=== PATIENT | female | born 1975 | race Caucasian/White ===

== ENCOUNTER 2016-11-18 06:00 | Emergency (ER) | payer BC ==
[~2016-11-18] VITALS: Ht 182.9 cm; Wt 73.3 kg
[~2016-11-18 06:00] MED LIST: ADDERALL30 MG PO; AMOXICILLIN875 MG PO; METHADONE10 MG PO; MOBIC15 MG PO; MOTRIN600 MG PO; MOTRIN800 MG PO; NAPROSYN500 MG PO; NORCO 5/3251 TABLET PO; PREDNISONE20 MG PO; ULTRACET1 TABLET PO; VICODIN HP 10-1 EACH PO; VICODIN,LORT1 TABLET
[2016-11-18] MEDS ORDERED: ADDERALL30 MG PO (06:45)
[2016-11-18 07:28] LABS: HEMATOCRIT 33.1 % (36.0-46.0); MCH 26.3 PG (29.0-34.0); MCHC 32.9 G/DL (30.0-36.0); MCV 79.8 FL (83-99); MEAN PLAT.VOLUME 9.7 uM^3 (9.5-12.4); PLATELET COUNT 399 K/uL (156-360); RBC DIS.WIDTH-CV 16.4 % (11.8-14.6); RBC DIS.WIDTH-SD 46.9 % (39-53); RED BLOOD COUNT 4.15 M/uL (3.80-5.20); WHITE BLOOD COUNT 6.5 K/uL (4.1-10.2)
[2016-11-18 07:29] LABS: BASOPHIL COUNT 0.1 K/uL (0-0.1); EOSINOPHIL (%) 2.8 % (0-5); EOSINOPHIL COUNT 0.2 K/uL (0-0.3); IMMATURE GRANULOCYTE (%) 0.3 % (0.0-0.7); IMMATURE GRANULOCYTE COUNT 0.2 K/uL; LYMPHOCYTE COUNT 1.8 K/uL (1.0-2.8); MONOCYTE (%) 10.5 % (3-12); MONOCYTE COUNT 0.7 K/uL (0-0.8); NEUTROPHIL (%) 57.2 % (45-76); NEUTROPHIL COUNT 3.7 K/uL (1.8-6.4)
[2016-11-18 07:55] LABS: ANION GAP 9 MEQ/L (2-14); CHLORIDE 104 MEQ/L (99-109); POTASSIUM 4.1 MEQ/L (3.7-5.4); SAMPLE HEMOLYSIS CHECK 0; SAMPLE ICTERIC CHECK 0; SAMPLE LIPEMIA CHECK 0; SODIUM 140 MEQ/L (136-147)
[2016-11-18 08:01] LABS: GFR ESTIMATE (CALCULATED) > 59 mL/min/; GLUCOSE 85 mg/dL (70-99); UREA NITROGEN (BUN) 20 mg/dL (9-23)
[2016-11-18 08:05] LABS: TROP-I INTERPRETATION NEGATIVE; TROPONIN-I < 0.01 ng/mL (0.0-0.30)
[2016-11-18 09:50] LABS: ADD MIUA? YES; BILIRUBIN NEGATIVE; BLOOD NEGATIVE; COLOR YELLOW ((YELLOW)); GLUCOSE (STRIP) NEGATIVE; KETONES TRACE; LEUKOCYTES NEGATIVE; NITRITE NEGATIVE; PH, URINE 7.5 (5-8); PROTEIN (STRIP) NEGATIVE; UROBILINOGEN 0.2 MG/DL (0.2-1.0)
[2016-11-18 10:10] LABS: BACTERIA 1+ /HPF; CASTS NONE SEEN /LPF; CRYSTALS NONE SEEN; EPITHELIAL CELLS 1+ /HPF; MUCUS NONE SEEN /LPF; PATHOLOGICAL CAST NONE SEEN; RED BLOOD CELLS 0-5 /HPF (0-5); SMALL ROUND CELL NONE SEEN; UCUL ADDED? NO; WHITE BLOOD CELLS 0-5 /HPF (0-5); YEAST-LIKE CELL NONE SEEN
[2016-11-18 10:12] LABS: SPECIFIC GRAVITY 1.066 (1.000-1.030)
[2016-11-18] MEDS ORDERED: TRAMADOL HCL50 MG PO (11:02)
[2016-11-18] MEDS ORDERED: MOTRIN600 MG PO (11:02)
[2016-11-18] MEDS ORDERED: FLEXERIL10 MG PO (11:02)
[2016-11-18 11:11] VITALS: BP 126/76
== END 2016-11-18 11:20 | disposition home or self-care (01) ==
LOC: EME 06:00
PROVIDERS: Emergency Medicine
DX: S20.229A Contusion of unspecified back wall of thorax, initial encounter (principal); S20.219A Contusion of unspecified front wall of thorax, initial encounter; Y08.02XA Assault by strike by baseball bat, initial encounter; Y04.8XXA Assault by other bodily force, initial encounter; R94.6 Abnormal results of thyroid function studies; F17.200 Nicotine dependence, unspecified, uncomplicated
CPT/HCPCS: 71020; 71260; 72125; 74177; 80048; 81003; 84484; 85025; 93005; 99281; 99285; J3010; J7030

== ENCOUNTER 2017-04-21 21:54 | Emergency (ER) | payer BC ==
[~2017-04-21] VITALS: Ht 182.9 cm; Wt 73.4 kg
[~2017-04-21 21:54] MED LIST changes: +FLEXERIL10 MG PO; +TRAMADOL HCL50 MG PO
[2017-04-21] MEDS ORDERED: AFRIN,GENASAL D15 ML BOTH NARES (22:45)
[2017-04-21] MEDS ORDERED: AUGMENTIN875 MG PO (22:45)
[2017-04-22 00:18] VITALS: BP 108/68
== END 2017-04-21 23:43 | disposition home or self-care (01) ==
LOC: EME 21:54
DX: J01.90 Acute sinusitis, unspecified (principal); H66.91 Otitis media, unspecified, right ear; K04.7 Periapical abscess without sinus; Z87.891 Personal history of nicotine dependence
CPT/HCPCS: 99281; 99283

== ENCOUNTER 2017-05-09 16:36 | Emergency (ER) | payer BC ==
[~2017-05-09] VITALS: Ht 182.9 cm; Wt 74.0 kg
[~2017-05-09 16:36] MED LIST changes: +AFRIN,GENASAL D15 ML BOTH NARES; +AUGMENTIN875 MG PO
[2017-05-09 16:54] VITALS: BP 149/81
[2017-05-09] MEDS ORDERED: ULTRAM50 MG PO (18:02)
[2017-05-09] MEDS ORDERED: CLEOCIN300 MG PO (18:02)
== END 2017-05-09 18:46 | disposition home or self-care (01) ==
LOC: EME 16:36
DX: K02.9 Dental caries, unspecified (principal); R51 Headache; F17.200 Nicotine dependence, unspecified, uncomplicated
CPT/HCPCS: 99281; 99283

== ENCOUNTER 2017-07-06 14:34 | Emergency (ER) | payer BC ==
[~2017-07-06] VITALS: Ht 185.4 cm; Wt 75.1 kg
[~2017-07-06 14:34] MED LIST changes: +CLEOCIN300 MG PO; +ULTRAM50 MG PO
[2017-07-06] MEDS ORDERED: TRAMADOL HCL50 MG PO (16:25)
[2017-07-06] MEDS ORDERED: NAPROSYN500 MG PO (16:25)
[2017-07-06] MEDS ORDERED: PEN-VEE K,VEET500 MG PO (16:25)
[2017-07-06 16:32] VITALS: BP 138/88
== END 2017-07-06 16:33 | disposition home or self-care (01) ==
LOC: EME 14:34
DX: K04.7 Periapical abscess without sinus (principal); K08.89 Other specified disorders of teeth and supporting structures; K03.81 Cracked tooth; Z87.891 Personal history of nicotine dependence
CPT/HCPCS: 99281; 99283

== ENCOUNTER 2017-08-02 21:32 | Emergency (ER) | payer BC ==
[~2017-08-02] VITALS: Ht 182.9 cm; Wt 76.1 kg
[~2017-08-02 21:32] MED LIST changes: +PEN-VEE K,VEET500 MG PO
[2017-08-02] MEDS ORDERED: NAPROSYN500 MG PO (22:55)
[2017-08-02] MEDS ORDERED: AUGMENTIN875 MG PO (22:55)
[2017-08-02 23:27] VITALS: BP 156/95
== END 2017-08-02 23:28 | disposition home or self-care (01) ==
LOC: EME 21:32 → EXP 21:32
PROC: 3E0T3BZ Introduction of Anesthetic Agent into Peripheral Nerves and Plexi, Percutaneous Approach (ICD-10-PCS; principal; 2017-08-02)
DX: K08.89 Other specified disorders of teeth and supporting structures (principal); Z87.891 Personal history of nicotine dependence
CPT/HCPCS: 99281; 99282

== ENCOUNTER 2018-01-29 14:48 | Emergency (ER) | payer BC ==
[~2018-01-29] VITALS: Ht 185.4 cm; Wt 98.3 kg
[2018-01-29 15:02] VITALS: BP 144/96
[2018-01-29] MEDS ORDERED: ULTRAM50 MG PO (15:37)
== END 2018-01-29 16:00 | disposition home or self-care (01) ==
LOC: EME 14:48
DX: M17.12 Unilateral primary osteoarthritis, left knee (principal); Z87.891 Personal history of nicotine dependence; Z85.828 Personal history of other malignant neoplasm of skin
CPT/HCPCS: 73564; 99281; 99284

== ENCOUNTER 2018-04-01 14:40 | Emergency (ER) | payer BC ==
[~2018-04-01] VITALS: Ht 182.9 cm; Wt 80.0 kg
[2018-04-01 16:50] LABS: HEMATOCRIT 33.4 % (36.0-46.0); HEMOGLOBIN 11.1 G/DL (11.9-15.5); MCH 25.8 PG (29.0-34.0); MCHC 33.2 G/DL (30.0-36.0); MCV 77.7 FL (83-99); PLATELET COUNT 466 K/uL (156-360); RBC DIS.WIDTH-CV 17.9 % (11.8-14.6); RBC DIS.WIDTH-SD 50.9 % (39-53); WHITE BLOOD COUNT 6.6 K/uL (4.1-10.2)
[2018-04-01 17:00] LABS: CHLORIDE 104 mEq/L (99-109); POTASSIUM 4.3 mEq/L (3.7-5.4); SODIUM 138 mEq/L (136-147)
[2018-04-01 17:02] LABS: GLUCOSE 93 mg/dL (70-99); TOTAL PROTEIN 7.2 g/dL (6.4-8.3)
[2018-04-01 17:04] LABS: TOTAL BILIRUBIN 0.2 mg/dL (0.0-1.0)
[2018-04-01 17:05] LABS: APPEARANCE CLEAR ((CLEAR)); BILIRUBIN NEGATIVE; BLOOD MODERATE; COLOR YELLOW ((YELLOW)); GLUCOSE (STRIP) NEGATIVE; KETONES NEGATIVE; LEUKOCYTES NEGATIVE; NITRITE NEGATIVE; PROTEIN (STRIP) NEGATIVE; UROBILINOGEN 0.2 MG/DL (0.2-1.0)
[2018-04-01 17:06] LABS: ALKALINE PHOSPHATASE 62 IU/L (3-129); CREATININE 0.9 mg/dL (0.6-1.3); GFR ESTIMATE (CALCULATED) > 59 mL/min/
[2018-04-01 17:07] LABS: UREA NITROGEN (BUN) 13 mg/dL (9-23)
[2018-04-01 17:08] LABS: AST (GOT) 13 IU/L (2-34)
[2018-04-01 17:09] LABS: ALT (GPT) 8 IU/L (3-49)
[2018-04-01 17:16] LABS: QUANTITATIVE HCG < 4.0 MIU/ML
[2018-04-01 17:18] LABS: BACTERIA NONE SEEN /HPF; EPITHELIAL CELLS 1+ /HPF; MUCUS TRACE /LPF; UCUL ADDED? NO; WHITE BLOOD CELLS 0-5 /HPF (0-5)
[2018-04-01 18:07] LABS: THYROTROPIN (TSH) 1.3 MIU/L (0.4-5.5)
[2018-04-01] MEDS ORDERED: AMOXICILLIN875 MG PO (19:48)
[2018-04-01] MEDS ORDERED: DELTASONE20 M1 PO (19:48)
[2018-04-01 20:00] VITALS: BP 123/85
== END 2018-04-01 20:01 | disposition home or self-care (01) ==
LOC: EME 14:40
PROVIDERS: Physician Assistant
DX: H93.19 Tinnitus, unspecified ear (principal); R20.2 Paresthesia of skin; R42 Dizziness and giddiness; Z87.891 Personal history of nicotine dependence; Z86.018 Personal history of other benign neoplasm; Z98.890 Other specified postprocedural states
CPT/HCPCS: 70553; 80053; 81003; 84443; 84702; 85027; 99281; 99284